=== PATIENT | male | born 1975 | race Caucasian/White ===

== ENCOUNTER 2017-07-10 11:46 | Emergency (ER) | payer SELFPAY ==
[2017-07-10 11:51] VITALS: BMI 29.0
[2017-07-10] MEDS ORDERED: DIPHTH,PERTUSS(ACELL),TET 0.5 ML DISP.SYRIN IM ONE (12:30)
[2017-07-10] MEDS ORDERED: LIDOCAINE HCL 1%, 10 MG/ML (20ML VIAL) ONE (12:50)
--- NOTE | 2017-07-10 15:14 | PDOC ---
History of Present Illness - General Chief Complaint: Laceration Stated Complaint: LIP INJURY Time Seen by Provider: 07/10/17 12:01 History Source: Patient - History of Present Illness Initial Comments: 07/10/17 21:16 41 y.o. male with no reported PMH presents c/o lip laceration following accident @ home in which he was going through his trash and cut his lip on a metal can. Patient denies any associated head trauma or LOC and cannot recall any h/o tetanus shot. Past History - Past Medical History Allergies/Adverse Reactions: Allergies Allergy/AdvReac Type Severity Reaction Status Date / Time No Known Allergies Allergy Verified 07/10/17 11:47 COPD: No - Immunization History Immunization Up to Date: No - Suicide/Smoking/Psychosocial Hx Smoking History: Never smoked Have you smoked in the past 12 months: No Information on smoking cessation initiated: No Hx Alcohol Use: No Drug/Substance Use Hx: No Substance Use Type: Alcohol Review of Systems - Review of Systems Constitutional: No: Chills, Fever Respiratory: No: Cough, Shortness of Breath Cardiac (ROS): No: Chest Pain, Lightheadedness, Palpitations ABD/GI: No: Constipated, Diarrhea : No: Burning, Dysuria *Physical Exam - Vital Signs Last Vital Signs Temp Pulse Resp BP Pulse Ox 97.6 F 60 12 134/82 100 07/10/17 11:49 07/10/17 11:49 07/10/17 11:49 07/10/17 11:49 07/10/17 11:49 - Physical Exam General Appearance: Yes: Nourished, Appropriately Dressed HEENT: positive: EOMI, DELANEY Neck: positive: Trachea midline, Supple Respiratory/Chest: positive: Lungs Clear Cardiovascular: positive: S1, S2 Gastrointestinal/Abdominal: positive: Normal Bowel Sounds, Soft Extremity: positive: Normal Capillary Refill, Normal Inspection Integumentary: positive: Normal Color, Dry, Warm, Other (L upper labial 2 cm laceration w/zach border involvement) Neurologic: positive: Fully Oriented, Alert Procedures - Laceration/Wound Repair Left Upper Lip Wound Length: to 2.5 cm Wound Explored: clean Wound's Depth, Shape: linear Anesthesia: 1% Lidocaine Amount of Anesthetic (ccs): 5 Wound Repaired With: Sutures Suture Size/Type: 6:0 Number of Sutures: 4 ED Treatment Course - Medications Given in the ED: ED Medications Discontinued Medications Generic Name Dose Route Start Last Admin Trade Name Latha PRN Reason Stop Dose Admin Diphtheria/Tetanus/Acell Pertussis 0.5 ml 07/10/17 12:30 07/10/17 12:45 Boostrix - IM 07/10/17 12:31 0.5 ml .ONCE ONE Administration Medical Decision Making - Medical Decision Making 07/10/17 21:20 41 y.o. male presents w/lip laceration implicating vermilion border. Infraorbital nerve block w/1% lidocaine. Laceration cleaned with water and repaired using 6.0 suture - 4 simple interrupted sutures. Boostrix administered. Patient given return precautions and instructed to return to ED in 5 day for suture removal. *DC/Admit/Observation/Transfer Diagnosis at time of Disposition: Laceration - Discharge Dispostion Disposition: HOME - Referrals - Patient Instructions Printed Discharge Instructions: DI for Suture Removal Additional Instructions: Please return to the Emergency Department in 5 days for suture removal. Return to the Emergency Department before that time for any swelling, redness, diplaced sutures or severe pain. - Post Discharge Activity
[2017-07-10 15:37] VITALS: BP 130/78; PULSE 63; TEMP 98.6
== END 2017-07-10 15:37 | disposition home or self-care (01) ==
LOC: JER 11:46
PROC: 3E0234Z Introduction of Serum, Toxoid and Vaccine into Muscle, Percutaneous Approach (ICD-10-PCS; principal; 2017-07-10)
PROC: 0CQ03ZZ Repair Upper Lip, Percutaneous Approach (ICD-10-PCS; 2017-07-10)
DX: S01.511A Laceration without foreign body of lip, initial encounter (principal); W26.8XXA Contact with other sharp object(s), not elsewhere classified, initial encounter; Y93.89 Activity, other specified; Y92.038 Other place in apartment as the place of occurrence of the external cause; Y99.8 Other external cause status
CPT/HCPCS: 90715; 99282-25

== ENCOUNTER 2017-07-15 14:36 | Emergency (ER) | payer SELFPAY ==
[2017-07-15 14:47] VITALS: BP 129/88; PULSE 63; TEMP 98.7; BMI 25.4
--- NOTE | 2017-07-15 15:50 | PDOC ---
Suture Removal/Wound Check HPI - History of Present Illness Chief Complaint: Suture/Staple Removal(Here) Stated Complaint: SUTURE REMOVED Time Seen by Provider: 07/15/17 14:52 History Source: Yes: Patient, EMS Exam Limitations: Yes: No Limitations Treated at: [facility] Date of Last ED visit: 07/10/17 - Previous ED Treatment Type of procedure performed on last visit: Yes: Laceration Repair Tetanus Immunization: Yes: Given at last ED visit - Onset of Previous Treatment Comment:: 07/15/17 15:50 4 suture removed without complication. Edges well approximated, no erythema, swelling, tenderness. Past History - Past Medical History Allergies/Adverse Reactions: Allergies Allergy/AdvReac Type Severity Reaction Status Date / Time No Known Allergies Allergy Verified 07/15/17 14:44 Home Medications: Ambulatory Orders NK [No Known Home Medication] 07/15/17 COPD: No Other medical history: DENIES. - Immunization History Immunization Up to Date: No - Suicide/Smoking/Psychosocial Hx Smoking History: Never smoked Have you smoked in the past 12 months: No Hx Alcohol Use: No Drug/Substance Use Hx: No Substance Use Type: Alcohol *DC/Admit/Observation/Transfer Diagnosis at time of Disposition: Visit for suture removal - Discharge Dispostion Disposition: HOME Condition at time of disposition: Stable Admit: No - Referrals - Patient Instructions Printed Discharge Instructions: DI for Suture Removal - Post Discharge Activity
== END 2017-07-15 15:54 | disposition home or self-care (01) ==
LOC: JERFT 14:36
DX: Z48.02 Encounter for removal of sutures (principal)
CPT/HCPCS: 99281-25

== ENCOUNTER 2017-07-22 09:49 | Emergency (ER) | payer SELFPAY ==
[2017-07-22 09:57] VITALS: BP 123/79; PULSE 95; TEMP 98.9; BMI 21.7
--- NOTE | 2017-07-22 10:00 | PDOC ---
History of Present Illness - General Chief Complaint: Laceration Stated Complaint: RT LEG LACERATION Time Seen by Provider: 07/22/17 09:59 Past History - Past Medical History Allergies/Adverse Reactions: Allergies Allergy/AdvReac Type Severity Reaction Status Date / Time No Known Allergies Allergy Verified 07/22/17 09:54 Home Medications: Ambulatory Orders NK [No Known Home Medication] 07/15/17 COPD: No - Immunization History Immunization Up to Date: No - Suicide/Smoking/Psychosocial Hx Smoking History: Never smoked Have you smoked in the past 12 months: No Information on smoking cessation initiated: No Hx Alcohol Use: No Drug/Substance Use Hx: No Substance Use Type: Alcohol *Physical Exam - Vital Signs Last Vital Signs Temp Pulse Resp BP Pulse Ox 98.9 F 95 H 20 123/79 98 07/22/17 09:55 07/22/17 09:55 07/22/17 09:55 07/22/17 09:55 07/22/17 09:55
--- NOTE | 2017-07-22 10:07 | PDOC ---
Attending Attestation - Resident Resident Name: Hay Sands - HPI HPI: 07/22/17 10:10 41 y/o male was cutting a log with a chain saw and dropped it, the saw cut through his pants, boots and into his leg. Pt sustained a 7cm by 3cm laceration down to the tendon. PT is able to fully flex and extend the rt lower extremity. Injury occurred just prior to arrival to ED. Pt with no other injuries. Pt denies fallinghitting head any other injuries - Physicial Exam PE: 07/22/17 10:15 VSS 98.9-95-20 123/79 98% PE: Pt is alert and oriented xe HEENT: NC/AT JO, EOMI Neck:supple Lungs: + bs weston cta Heart: S1S2 regular Abd: + bs abd soft EXT: rt leg with 7cm by 3cm lower leg laceration down to the tendon - Medical Decision Making 07/22/17 10:26 After obtaining consent procedure explained to pt, wound irrigated with saline, and using sterile technique Resident repaired the laceration. Pt given tetanus and 1 gram of ancef. 07/22/17 10:27
[2017-07-22] MEDS ORDERED: LIDOCAINE 2%/EPINEPHRINE 1:100000 (50 ML MD VIAL) NR ONE (10:08)
[2017-07-22] MEDS ORDERED: DIPHTH,PERTUSS(ACELL),TET 0.5 ML DISP.SYRIN IM ONE (10:12)
[2017-07-22] MEDS ORDERED: LIDOCAINE 1%/EPI 1:100000 (20 ML MULTI DOSE VIAL) ONE (10:12)
[2017-07-22] MEDS ORDERED: CEFAZOLIN 1 GM/D5W 1 GM/50 ML BAG ONE (10:16)
--- NOTE | 2017-07-22 11:29 | PDOC ---
History of Present Illness - General Chief Complaint: Laceration Stated Complaint: RT LEG LACERATION Time Seen by Provider: 07/22/17 09:59 History Source: Patient Exam Limitations: No Limitations - History of Present Illness Initial Comments: 07/22/17 11:35 41M with no pmh presents to the ER for self inflicted chainsaw wound to the posterior right leg. Not actively bleeding, no difficulty moving the foot. Patient had a tetanus shot last week after coming to the ER for lip laceration. Past History - Past Medical History Allergies/Adverse Reactions: Allergies Allergy/AdvReac Type Severity Reaction Status Date / Time No Known Allergies Allergy Verified 07/22/17 09:54 Home Medications: Ambulatory Orders Amox-Tr/K Cl [Augmentin - 875Mg Tablet] 1 tab PO BID #14 tablet 07/22/17 COPD: No - Immunization History Immunization Up to Date: No - Suicide/Smoking/Psychosocial Hx Smoking History: Never smoked Have you smoked in the past 12 months: No Information on smoking cessation initiated: No Hx Alcohol Use: No Drug/Substance Use Hx: No Substance Use Type: Alcohol Review of Systems - Review of Systems Able to Perform ROS?: Yes Is the patient limited Albanian proficient: Yes Constitutional: No: Symptoms Reported HEENTM: No: Symptoms Reported Respiratory: No: Symptoms reported Cardiac (ROS): No: Symptoms Reported ABD/GI: No: Symptoms Reported : No: Symptoms Reported Musculoskeletal: Yes: See HPI Integumentary: No: Symptoms Reported Neurological: No: Symptoms reported All Other Systems: Reviewed and Negative *Physical Exam - Vital Signs Last Vital Signs Temp Pulse Resp BP Pulse Ox 98.9 F 95 H 20 123/79 98 07/22/17 09:55 07/22/17 09:55 07/22/17 09:55 07/22/17 09:55 07/22/17 09:55 - Physical Exam General Appearance: Yes: Nourished, Appropriately Dressed, Apparent Distress, Mild Distress HEENT: positive: EOMI, DELANEY Respiratory/Chest: positive: Lungs Clear, Normal Breath Sounds. negative: Chest Tender, Respiratory Distress Cardiovascular: positive: Regular Rhythm, Regular Rate, S1, S2 Gastrointestinal/Abdominal: positive: Normal Bowel Sounds, Flat, Soft. negative : Tender Extremity: positive: Normal Capillary Refill, Normal Range of Motion, Other ( 8.5cm wound, linear but irregular and contused tissue (see procedure note). Full range of motion, 2+ pulses, not actively bleeding). negative: Cyanosis, Swelling Neurologic: positive: Fully Oriented, Alert, Normal Mood/Affect, Normal Response , Motor Strength 5/5 Procedures - Laceration/Wound Repair Right Posterior Distal Leg Wound Length: 7.6 to 12.5 cm (8.5cm) Wound Explored: clean Wound's Depth, Shape: linear, irregular, contused tissue Irrigated w/ Saline: Yes Betadine Prep: Yes Anesthesia: 1% Lidocaine w/ Epi Wound Debrided: minimal Wound Repaired With: Sutures Suture Size/Type: 4:0, nylon Number of Sutures: 13 ED Treatment Course - Medications Given in the ED: ED Medications Discontinued Medications Generic Name Dose Route Start Last Admin Trade Name Freq PRN Reason Stop Dose Admin Cefazolin Sodium 1 gm 07/22/17 10:14 07/22/17 10:31 Ancef 1gm Ivpb (Pre-Docked) IVPB 07/22/17 10:15 1 gm NOW ONE Administration Diphtheria/Tetanus/Acell Pertussis 0.5 ml 07/22/17 10:12 07/22/17 10:30 Boostrix - IM 07/22/17 10:13 Not Given .ONCE ONE *DC/Admit/Observation/Transfer Diagnosis at time of Disposition: Contact with chainsaw as cause of accidental injury, Laceration of right lower leg - Discharge Dispostion Disposition: HOME Condition at time of disposition: Fair Admit: No - Prescriptions Prescriptions: Amox-Tr/K Cl [Augmentin - 875Mg Tablet] 1 tab PO BID #14 tablet - Referrals Referrals: Chester Fong MD [Staff Physician] - - Patient Instructions Printed Discharge Instructions: DI for Laceration Repair, DI for Suture Removal Additional Instructions: Come back to the ER for suture removal in 10 to 14 days. supervising librarian your prescription for Augmentin, an antibiotic and use as directed. Come back to the ER for any new, worsening or concerning symptom. You can also follow up at the clinic of Dr. Fong. Print Language: SUDANESE - Post Discharge Activity
== END 2017-07-22 11:41 | disposition home or self-care (01) ==
LOC: JER 09:49
PROC: 3E03329 Introduction of Other Anti-infective into Peripheral Vein, Percutaneous Approach (ICD-10-PCS; principal; 2017-07-22)
PROC: 0JQN0ZZ Repair Right Lower Leg Subcutaneous Tissue and Fascia, Open Approach (ICD-10-PCS; 2017-07-22)
DX: S81.811A Laceration without foreign body, right lower leg, initial encounter (principal); W29.3XXA Contact with powered garden and outdoor hand tools and machinery, initial encounter; Y93.89 Activity, other specified; Y92.89 Other specified places as the place of occurrence of the external cause; Y99.8 Other external cause status
CPT/HCPCS: 99283-25